=== PATIENT | male | born 1990 | race Caucasian/White ===

== ENCOUNTER 2024-09-16 02:27 | Emergency (ER) | payer SELFPAY ==
[~2024-09-16] VITALS: Ht 180.3 cm; Wt 73.0 kg
[2024-09-16 02:46] VITALS: O2SAT 100
[2024-09-16 06:05] VITALS: TEMP 98
[2024-09-16] MEDS: ACETAMINOPHEN 325MG TABLET PO ONE (06:05)
[2024-09-16 06:49] VITALS: BP 129/70; PULSE 55; RESP 17; O2SAT 97
== END 2024-09-16 06:50 | disposition home or self-care (01) ==
LOC: ER 02:27
DX: S09.90XA Unspecified injury of head, initial encounter (principal); W22.8XXA Striking against or struck by other objects, initial encounter; Y93.89 Activity, other specified; Y92.89 Other specified places as the place of occurrence of the external cause; Y99.8 Other external cause status
CPT/HCPCS: 99284